=== PATIENT | male | born 1970 | race Caucasian/White ===

== ENCOUNTER 2023-03-09 08:16 | Outpatient (CLI) | payer OTHER, SELFPAY | END 2023-03-09 08:17 | disposition home or self-care (01) | LOC: NFLDREF 03-10 10:44 | PROVIDERS: PCP Physician Assistant Medical; Referring Provider Physician Assistant Medical; Visit Provider Family Medicine | DX: E78.00 Pure hypercholesterolemia, unspecified (principal); Z12.5 Encounter for screening for malignant neoplasm of prostate | CPT/HCPCS: 80053; 80061; 84153 ==

== ENCOUNTER 2023-04-14 08:27 | Outpatient (CLI) | payer OTHER, SELFPAY ==
--- NOTE | 2023-04-14 08:48 | W.ANESCHARGE ---
Anesthesia Charges Start Date/Time Anesthesia Start Date: 04/14/23 Anesthesia Start Time: 09:12 Stop Date/Time Anesthesia Stop Date: 04/14/23 Anesthesia Stop Time: 09:38
--- NOTE | 2023-04-14 09:38 | W.ANESCHARGE ---
Anesthesia Charges Start Date/Time Anesthesia Start Date: 04/14/23 Anesthesia Start Time: 09:12 Stop Date/Time Anesthesia Stop Date: 04/14/23 Anesthesia Stop Time: 09:38
== END 2023-04-14 08:28 | disposition home or self-care (01) ==
LOC: OP CLINIC 08:29
PROVIDERS: PCP Physician Assistant Medical; Visit Provider Internal Medicine
DX: Z12.11 Encounter for screening for malignant neoplasm of colon (principal); K63.5 Polyp of colon; K57.30 Diverticulosis of large intestine without perforation or abscess without bleeding
CPT/HCPCS: 00811; 45380; 88305; J2704